=== PATIENT | male | born 1990 | race Caucasian/White ===

== ENCOUNTER 2017-01-16 04:15 | Emergency (ER) | payer SELFPAY ==
[~2017-01-16] VITALS: Ht 175.3 cm; Wt 79.4 kg
[2017-01-16 04:15] VITALS: BP_SYST 127
[2017-01-16 04:35] VITALS: BP_SYST 127
== END 2017-01-16 04:35 ==
LOC: SED 04:15
DX: Z02.89 Encounter for other administrative examinations (principal); F10.10 Alcohol abuse, uncomplicated; V43.02XA Car driver injured in collision with other type car in nontraffic accident, initial encounter; Y93.89 Activity, other specified; Y92.410 Unspecified street and highway as the place of occurrence of the external cause; Y99.8 Other external cause status
CPT/HCPCS: 99283